=== PATIENT | female | born 1990 | race Caucasian/White ===

== ENCOUNTER 2016-08-24 15:03 | Emergency (ER) | payer MEDICAID ==
[~2016-08-24] VITALS: Ht 165.1 cm; Wt 85.0 kg
[2016-08-24 15:04] VITALS: BP 120/70; PULSE 86; RESP 18; TEMP 98.4; O2SAT 97
[2016-08-24 15:59] LABS: BLOOD, URINE NEG (NEG); COMMENT (UR) CULT NOT INDICATED; CULTURE IF INDICATED CULT NOT INDICATED; GLUCOSE,URINE NEG (NEG); KETONE, URINE NEG (NEG); MUCUS URINE FEW /lpf (OCC); NITRITE,URINE NEG (NEG); PH, URINE 6.5 (5.0-8.5); SQUAMOUS EPITHELIAL CELL URINE <1 /hpf (0-5); URINE COLOR YELLOW (YELLW/STRAW)
[2016-08-24 16:00] LABS: AUTOMATED NEUTROPHIL # 8.8 TH/MM3 (1.8-7.7); BASOPHIL # 0.1 TH/MM3 (0-0.2); BASOPHIL % 0.6 % (0.0-2.0); EOSINOPHIL # 0.1 TH/MM3 (0-0.4); EOSINOPHIL % 1.1 % (0.0-4.0); HEMATOCRIT 39.8 % (35.0-46.0); HEMO FLAGS DIFF FINAL; LYMPH % 18.6 % (9.0-44.0); LYMPHOCYTE # 2.2 TH/MM3 (1.0-4.8); MEAN CELL VOLUME 88.5 FL (80.0-100.0); MEAN CORPUSCULAR HGB CONC 33.9 % (32.0-36.0); MONO % 6.5 % (0.0-8.0); NEUT % 73.2 % (16.0-70.0); PLATELET COUNT 396 TH/MM3 (150-450); RED CELL DISTRIBUTION WIDTH 13.6 % (11.6-17.2)
[2016-08-24 16:19] LABS: BETA HCG QUANT LESS THAN 1 MIU/ML (0-5)
[2016-08-24] MEDS ORDERED: ORTH1TAB PO (16:26)
--- NOTE | 2016-08-24 16:26 | PD ---
HPI Chief Complaint: English Language Learner Tutor Problem/Complaint Time Seen by Provider: 15:33 Travel History International Travel<30 days: No Contact w/Intl Traveler<30days: No Traveled to known affect area: No History of Present Illness HPI 26-year-old female presents to the ER today because she states that she has been having vaginal spotting and brown vaginal bleeding for 10 days. She states that she has taken her to see test and they were all negative. She denies any significant abdominal pains, fevers, vomiting, urinary symptoms, or any other symptoms. She states that she is concerned because of the ongoing bleeding. She denies any unusual vaginal discharge. Modifying Factors: None Associated Signs & Symptoms: Vaginal bleeding for 10 days Risk Factors: None PFSH Past Medical History Heart Rhythm Problems: Yes (hx rapid heart beat ) Cardiovascular Problems: Yes (SVT) Diminished Hearing: No Tetanus Vaccination: Unknown Influenza Vaccination: No ?: Unknown LMP: 07/16/16 Menopausal: No : 1 Para: 1 Miscarriage: 0 : 0 Past Surgical History Cardiac Surgery: Yes (SVT ablation) Social History Alcohol Use: Yes (rarely) Tobacco Use: Yes (1/2 PPD) Substance Use: No Allergies-Medications (Allergen,Severity, Reaction): Coded Allergies: No Known Allergies (Verified , 04/08/16) Reported Meds & Prescriptions Reported Meds & Active Scripts Active No Active Prescriptions or Reported Medications Review of Systems Except as stated in HPI: all other systems reviewed are Neg Physical Exam Narrative GENERAL: Well-nourished, well-developed young white female patient in no acute distress. SKIN: Warm and dry. HEAD: Normocephalic. EYES: No scleral icterus. No injection or drainage. NECK: Supple, trachea midline. CARDIOVASCULAR: Regular rate and rhythm without murmurs, gallops, or rubs. RESPIRATORY: Breath sounds equal bilaterally. No accessory muscle use. GASTROINTESTINAL: Abdomen soft, non-tender, nondistended. Benign. GENITOURINARY: Normal external genitalia without lesions or erythema. Vaginal vault small amount of dark blood with no drainage. Cervical os was closed without drainage. No cervical motion tenderness. Uterus nontender and nonenlarged. Bilateral adnexa nontender without masses. MUSCULOSKELETAL: No cyanosis, or edema. BACK: Nontender without obvious deformity. No CVA tenderness. Data Data Last Documented VS Vital Signs Date Time Temp Pulse Resp B/P Pulse Ox O2 Delivery O2 Flow Rate FiO2 08/24/16 15:50 68 16 08/24/16 15:04 98.4 120/70 97 Room Air Orders Beta Hcg (Quant/Titer) (08/24/16 15:20) Complete Blood Count With Diff (08/24/16 15:20) Urinalysis - C+S If Indicated (08/24/16 15:33) Labs Laboratory Tests Test 08/24/16 08/24/16 15:42 15:44 White Blood Count 12.0 TH/MM3 Red Blood Count 4.50 MIL/MM3 Hemoglobin 13.5 GM/DL Hematocrit 39.8 % Mean Corpuscular Volume 88.5 FL Mean Corpuscular Hemoglobin 30.0 PG Mean Corpuscular Hemoglobin 33.9 % Concent Red Cell Distribution Width 13.6 % Platelet Count 396 TH/MM3 Mean Platelet Volume 8.6 FL Neutrophils (%) (Auto) 73.2 % Lymphocytes (%) (Auto) 18.6 % Monocytes (%) (Auto) 6.5 % Eosinophils (%) (Auto) 1.1 % Basophils (%) (Auto) 0.6 % Neutrophils # (Auto) 8.8 TH/MM3 Lymphocytes # (Auto) 2.2 TH/MM3 Monocytes # (Auto) 0.8 TH/MM3 Eosinophils # (Auto) 0.1 TH/MM3 Basophils # (Auto) 0.1 TH/MM3 CBC Comment DIFF FINAL Differential Comment Human Chorionic Gonadotropin, LESS THAN 1 Quant MIU/ML Urine Color YELLOW Urine Turbidity CLEAR Urine pH 6.5 Urine Specific [place] 1.029 Urine Protein NEG mg/dL Urine Glucose (UA) NEG mg/dL Urine Ketones NEG mg/dL Urine Occult Blood NEG Urine Nitrite NEG Urine Bilirubin NEG Urine Urobilinogen LESS THAN 2.0 MG/DL Urine Leukocyte Esterase NEG Urine RBC 1 /hpf Urine WBC 1 /hpf Urine Squamous Epithelial <1 /hpf Cells Urine Mucus FEW /lpf Microscopic Urinalysis Comment CULT NOT INDICATED MDM Medical Decision Making Medical Screen Exam Complete: Yes Emergency Medical Condition: Yes Medical Record Reviewed: Yes Interpretation(s) Laboratory Tests Test 08/24/16 08/24/16 15:42 15:44 White Blood Count 12.0 TH/MM3 (4.0-11.0) Neutrophils (%) (Auto) 73.2 % (16.0-70.0) Neutrophils # (Auto) 8.8 TH/MM3 (1.8-7.7) Urine Mucus FEW /lpf (OCC) Differential Diagnosis Vaginal bleedingthreatened AB versus ectopic versus dysmenorrhea/ dysfunctional uterine bleeding Narrative Course Lab work shows that she is not . H&H is stable. Vital signs are stable in the ER and abdomen is benign. At this point, my plan would be to release her with follow-up to [facility] as necessary. I will give her OCP. Return for any worsening in symptoms as needed. The plan has been discussed with her and she states understanding. Diagnosis Primary Impression: Dysfunctional uterine bleeding Med/Other Pt SpecificInfo: Prescription(s) given Scripts Norethindrone-Ethinyl Estradiol (Ortho-Novum )1-35 Mg-Mcg Tab1 Tab PO DAILY #1 PACK Ref 0 Prov:Mike Olson MD 08/24/16 Disposition: 01 DISCHARGE HOME Condition: Stable Mike Olson MD Aug 24, 2016 16:26
[2016-08-24 21:33] LABS: CHLAMYDIA PCR NOT DETECTED (NOT DETECT); NEISSERIA PCR NOT DETECTED (NOT DETECT)
== END 2016-08-24 16:43 | disposition home or self-care (01) ==
LOC: NEPA 15:03
DX: N93.8 Other specified abnormal uterine and vaginal bleeding (principal)
CPT/HCPCS: 81001; 84702; 85025; 87210; 87491; 87591; 99283

== ENCOUNTER 2017-05-20 14:53 | Emergency (ER) | payer MEDICAID ==
[~2017-05-20] VITALS: Ht 165.1 cm; Wt 77.0 kg
[~2017-05-20 14:53] MED LIST: ORTH1TAB PO
[2017-05-20 14:54] VITALS: BP 133/68; PULSE 82; RESP 16; TEMP 98.3; O2SAT 100
--- NOTE | 2017-05-20 16:24 | PD ---
HPI Chief Complaint: Musculoskeletal Complaint Time Seen by Provider: 16:18 Travel History International Travel<30 days: No Contact w/Intl Traveler<30days: No Traveled to known affect area: No History of Present Illness HPI 26-year-old female here for evaluation of left foot pain. She reports that prior to arrival she tripped on her dog's leash and fell, twisting her left foot and ankle in the process. She is having dorsal lateral left foot pain which is aching and worse when walking. She denies any other injuries and she has no other complaints. PFSH Past Medical History Heart Rhythm Problems: Yes (hx rapid heart beat ) Cardiovascular Problems: Yes (SVT) Diminished Hearing: No ?: Not LMP: 05/20/17 Menopausal: No : 1 Para: 1 Miscarriage: 0 : 0 Past Surgical History Cardiac Surgery: Yes (SVT ablation) Social History Alcohol Use: Yes (rarely) Tobacco Use: Yes (1/2 PPD) Substance Use: No Allergies-Medications (Allergen,Severity, Reaction): Coded Allergies: No Known Allergies (Verified Adverse Reaction, Unknown, 05/20/17) Reported Meds & Prescriptions Reported Meds & Active Scripts Active Review of Systems Musculoskeletal: Positive: Pain, No: Limited ROM Skin: Positive Other (denies open wounds) Physical Exam Narrative GENERAL: Well-nourished female in no acute distress SKIN: Warm and dry. No bruising or soft tissue swelling CARDIOVASCULAR: Regular rate and rhythm. No murmur appreciated. RESPIRATORY: No accessory muscle use. Clear to auscultation. Breath sounds equal bilaterally. MUSCULOSKELETAL: No obvious deformities. Tender to palpation of the dorsal lateral left foot. The patient maintains full flexion and extension of the toes of left foot. Dorsi and plantar flexion is intact. The Achilles tendon is intact and nontender. 2+ dorsalis pedis pulse. NEUROLOGICAL: Awake and alert. No obvious cranial nerve deficits. Motor grossly within normal limits. Normal speech. Data Data Last Documented VS Vital Signs Date Time Temp Pulse Resp B/P (MAP) Pulse Ox O2 Delivery O2 Flow Rate FiO2 05/20/17 14:54 98.3 82 16 133/68 (89) 100 Room Air Orders Orders Foot, Complete ([id number]) (05/20/17 ) Ankle, Limited (Ap&Lat) (05/20/17 ) MDM Medical Decision Making Medical Screen Exam Complete: Yes Emergency Medical Condition: Yes Medical Record Reviewed: Yes Differential Diagnosis Left foot strain, contusion, fracture Narrative Course The patient declines any analgesics. X-ray imaging was ordered in triage and is negative. The patient appears to have a strain to her left foot. She is being discharged with crutches. Diagnosis Primary Impression: Strain of left foot Qualified Codes: S96.912A - Strain of unspecified muscle and tendon at ankle and foot level, left foot, initial encounter Additional Instructions: Tylenol or Motrin for pain. Crutches as needed. Return for any emergent medical conditions. Med/Other Pt SpecificInfo: No Change to Meds Disposition: 01 DISCHARGE HOME Condition: Stable Mello Barnes May 20, 2017 16:24
--- NOTE | 2017-05-20 16:56 | RADRPT ---
EXAM DATE/TIME: 05/20/2017 16:07 [facility] COMPARISON: No previous studies available for comparison. INDICATIONS : Left ankle pain after falling today. MEDICAL HISTORY : None. SURGICAL HISTORY : None. ENCOUNTER: Initial ACUITY: 1 day PAIN SCORE: 8/10 LOCATION: Left ankle. FINDINGS: Two view exam was performed of the left ankle. The bony structures are in normal alignment. No evid ence of fracture, dislocation, or soft tissue swelling. No radiopaque foreign bodies are seen. Bony mineralization is normal. CONCLUSION: 1. No acute fracture or dislocation. Vicente Louis MD on May 20, 2017 at 16:54 Board Certified Radiologist. This report was verified electronically.
--- NOTE | 2017-05-20 16:57 | RADRPT ---
EXAM DATE/TIME: 05/20/2017 16:10 [facility] COMPARISON: No previous studies available for comparison. INDICATIONS : Left foot pain after falling today. MEDICAL HISTORY : None. SURGICAL HISTORY : None. ENCOUNTER: Initial ACUITY: 1 day PAIN SCORE: 8/10 LOCATION: Left foot. FINDINGS: Three view examination of the left foot demonstrates no soft tissue swelling, dislocation, or fractur e. The tarsal bones appear intact. The interphalangeal and metatarsophalangeal joints are intact. The calcaneus is intact. Bony mineralization is normal. CONCLUSION: 1. No acute fracture or dislocation. Vicente Louis MD on May 20, 2017 at 16:55 Board Certified Radiologist. This report was verified electronically.
== END 2017-05-20 17:33 | disposition home or self-care (01) ==
LOC: NEPK 14:53
DX: S96.912A Strain of unspecified muscle and tendon at ankle and foot level, left foot, initial encounter (principal); F17.200 Nicotine dependence, unspecified, uncomplicated; Z86.79 Personal history of other diseases of the circulatory system; W18.09XA Striking against other object with subsequent fall, initial encounter
CPT/HCPCS: 73600; 73630; 99284; E0113

== ENCOUNTER 2017-05-31 09:51 | Emergency (ER) | payer MEDICAID ==
[~2017-05-31] VITALS: Ht 165.1 cm; Wt 79.5 kg
[2017-05-31 09:52] VITALS: BP 133/78; PULSE 80; RESP 18; TEMP 98; O2SAT 100
[2017-05-31] MEDS ORDERED: VALA1TAB PO (10:59)
[2017-05-31] MEDS ORDERED: [UNRECOGNIZED DRUG - CODE] DENTAL (10:59)
--- NOTE | 2017-05-31 10:59 | PD ---
HPI Chief Complaint: Medical Clearance Time Seen by Provider: 10:02 Travel History International Travel<30 days: No Contact w/Intl Traveler<30days: No Traveled to known affect area: No History of Present Illness HPI This is a 27-year-old female who presents to the emergency Department with onset at 4 AM of lesions on the right lower lip, constant, painful, burning, associated with some swelling of her lip. She says she does bite her lip and she is worried that may be where it came from. She says she has not had oral sex in a long time. PFSH Past Medical History Heart Rhythm Problems: Yes (hx rapid heart beat ) Cardiovascular Problems: Yes (SVT) Diminished Hearing: No Tetanus Vaccination: > 5 Years Influenza Vaccination: No ?: Not Menopausal: No : 1 Para: 1 Miscarriage: 0 : 0 Past Surgical History Cardiac Surgery: Yes (SVT ablation) Social History Alcohol Use: Yes (rarely) Tobacco Use: Yes (1/2 PPD) Substance Use: No Allergies-Medications (Allergen,Severity, Reaction): Coded Allergies: No Known Allergies (Verified Adverse Reaction, Unknown, 05/31/17) Reported Meds & Prescriptions Reported Meds & Active Scripts Active No Active Prescriptions or Reported Medications Review of Systems General / Constitutional: No: Fever, Chills Gastrointestinal: No: Nausea, Vomiting Physical Exam Narrative GENERAL: Well-appearing, no acute distress, nontoxic SKIN: Scattered vesicular lesions on the right lower lip and on the inner right mandibular mucosa with nothing on the posterior pharynx HEAD: Atraumatic. Normocephalic. ENT: No nasal bleeding or discharge. Moist mucous membranes MUSCULOSKELETAL: No obvious deformities. No clubbing. No cyanosis. No edema. NEUROLOGICAL: Awake and alert. No obvious cranial nerve deficits. Motor grossly within normal limits. Normal speech. PSYCHIATRIC: Appropriate mood and affect; insight and judgment normal. Data Data Last Documented VS Vital Signs Date Time Temp Pulse Resp B/P (MAP) Pulse Ox O2 Delivery O2 Flow Rate FiO2 05/31/17 09:52 98.0 80 18 133/78 (96) 100 Room Air MDM Medical Decision Making Medical Screen Exam Complete: Yes Emergency Medical Condition: Yes Differential Diagnosis HSV 1, HSV 2, shingles, aphthous ulcer Narrative Course This is a 27-year-old female who presents to the emergency department with vesicular lesions on her right lower lip. These appear to be herpetic in nature. I suspect she has an HSV 1 infection. I discussed her that it's possible that this will progress to a shingles outbreak and if it doesn't she should return to the emergency department. She'll be treated with oral antiviral therapy. Diagnosis Primary Impression: Primary HSV infection with gingivostomatitis Patient Instructions: General Instructions Additional Instructions: If you develop lesions that are spreading on your right face, inability to swallow, or inability to eat or drink return to the emergency department. Med/Other Pt SpecificInfo: Prescription(s) given Scripts Benzocaine Dental (Zilactin-B Dental) 10% Gel 1 APPLIC DENTAL BID Y for PAIN SCALE 4 TO 10, #1 TUBE Prov: Kasie Arango MD 05/31/17 Valacyclovir (Valacyclovir) 1,000 Mg Tab 1000 MG PO TID for Mgmt Viral Infection for 10 Days, #90 TAB 0 Refills Prov: Kasie Arango MD 05/31/17 Disposition: 01 DISCHARGE HOME Condition: Stable Kasie Arango MD May 31, 2017 10:59
== END 2017-05-31 11:03 | disposition home or self-care (01) ==
LOC: NEPK 09:51
DX: B00.2 Herpesviral gingivostomatitis and pharyngotonsillitis (principal); I47.1 Supraventricular tachycardia; F17.200 Nicotine dependence, unspecified, uncomplicated
CPT/HCPCS: 99283

== ENCOUNTER 2017-06-01 04:23 | Emergency (ER) | payer MEDICAID ==
[~2017-06-01] VITALS: Ht 165.1 cm; Wt 71.0 kg
[~2017-06-01 04:23] MED LIST changes: -ORTH1TAB PO; +VALA1TAB PO; +[UNRECOGNIZED DRUG - CODE] DENTAL
[2017-06-01 04:24] VITALS: BP 147/82; PULSE 94; RESP 16; TEMP 98.4; O2SAT 100
--- NOTE | 2017-06-01 05:03 | PD ---
HPI Chief Complaint: Skin Problem Time Seen by Provider: 04:36 Travel History International Travel<30 days: No Contact w/Intl Traveler<30days: No Traveled to known affect area: No History of Present Illness HPI 27-year-old white female presents to emergency department with complains of a rash to her right lower lip. She was seen here in the ER yesterday and was diagnosed with HSV. She states that she is unsure whether this is the right diagnosis and would like to have a second opinion. She is concerned that it can be associated with other types of rashes such as shingles. She states that the rash is now going on the inside of her mouth. She denies any fever or chills. She denies any known exposures to herpes. Symptoms are moderate. No alleviating factor. PFSH Past Medical History Heart Rhythm Problems: Yes (hx rapid heart beat ) Cardiovascular Problems: Yes (SVT) Diminished Hearing: No Immunizations Current: Yes Tetanus Vaccination: Unknown Influenza Vaccination: No ?: Not LMP: 05/27/17 Menopausal: No : 1 Para: 1 Miscarriage: 0 : 0 Past Surgical History Cardiac Surgery: Yes (SVT ablation) Social History Alcohol Use: Yes (rarely) Tobacco Use: Yes (1/2 PPD) Substance Use: No Allergies-Medications (Allergen,Severity, Reaction): Coded Allergies: No Known Allergies (Verified Adverse Reaction, Unknown, 06/01/17) Reported Meds & Prescriptions Reported Meds & Active Scripts Active Valacyclovir (Valacyclovir HCl) 1,000 Mg Tab 1,000 Mg PO TID 10 Days Review of Systems General / Constitutional: No: Fever Eyes: No: Visual changes HENT: No: Headaches Cardiovascular: No: Chest Pain or Discomfort Respiratory: No: Shortness of Breath Gastrointestinal: No: Abdominal Pain Genitourinary: No: Dysuria Musculoskeletal: No: Pain Skin: Positive Rash, Positive Lesions Neurologic: No: Weakness Psychiatric: No: Depression Endocrine: No: Polydipsia Hematologic/Lymphatic: No: Easy Bruising Physical Exam Narrative GENERAL: Well-developed, well-nourished in no acute distress. Nontoxic appearing. HEAD: Normocephalic, atraumatic. EYES: Pupils equal round and reactive. Extraocular motions intact. No scleral icterus. No injection or drainage. ENT: TMs clear without erythema. The external auditory canals clear. Nose: clear . Posterior pharynx is pink and moist. No tonsillar edema or exudate. Uvula midline. Airway patent. Patient has vesicles on erythematous base to the right lower lip and on the buccal mucosa NECK: Trachea midline.Supple, nontender, moves head freely. No central bony tenderness or spasm. CARDIOVASCULAR: Regular rate and rhythm without murmurs, gallops, or rubs. RESPIRATORY: Clear to auscultation. Breath sounds equal bilaterally. No wheezes , rales, or rhonchi. GASTROINTESTINAL: Abdomen soft, non-tender, nondistended. No hepato-splenomegaly , or palpable masses. No guarding. EXTREMITIES: No clubbing, cyanosis, or edema. No joint tenderness, effusion, or edema noted. BACK: Nontender without deformity or crepitance. No flank tenderness. Data Data Last Documented VS Vital Signs Date Time Temp Pulse Resp B/P (MAP) Pulse Ox O2 Delivery O2 Flow Rate FiO2 06/01/17 04:24 98.4 94 16 147/82 (103) 100 Room Air Orders Orders Ed Discharge Order (06/01/17 04:59) MDM Medical Decision Making Medical Screen Exam Complete: Yes Emergency Medical Condition: Yes Medical Record Reviewed: Yes Differential Diagnosis DIFFERENTIAL DIAGNOSES: hsv 1, hsv 2, SHINGLES, stomatitis Narrative Course The patient is given information regarding HSV-1 as well as images. I have explained to her that there is no test in the ER that I can perform to give her exact diagnosis. She is to follow-up with a primary care doctor or locomotive operator helper. She is advised to continue the medication. She is counseled that this is the correct treatment. Diagnosis Primary Impression: HSV-1 (herpes simplex virus 1) infection Patient Instructions: General Instructions Additional Instructions: Rest. Complete your medication. Follow-up with a locomotive operator helper for a second opinion. Return to the ER for emergencies. Med/Other Pt SpecificInfo: No Change to Meds Disposition: 01 DISCHARGE HOME Condition: Stable Je Gill Jun 01, 2017 05:03
== END 2017-06-01 05:22 | disposition home or self-care (01) ==
LOC: NEPD 04:23
DX: B00.9 Herpesviral infection, unspecified (principal); F17.200 Nicotine dependence, unspecified, uncomplicated
CPT/HCPCS: 99282

== ENCOUNTER 2017-10-20 10:31 | Emergency (ER) | payer MEDICAID ==
[~2017-10-20 10:31] MED LIST changes: -[UNRECOGNIZED DRUG - CODE] DENTAL
[2017-10-20 10:43] VITALS: BP 117/66; PULSE 61; RESP 16; TEMP 98.1; O2SAT 100
[2017-10-20] MEDS ORDERED: BACT800T5 PO (11:19)
--- NOTE | 2017-10-20 11:21 | PD ---
HPI Chief Complaint: Skin Problem Time Seen by Provider: 11:15 Travel History International Travel<30 days: No Contact w/Intl Traveler<30days: No Traveled to known affect area: No History of Present Illness HPI 27-year-old female presents to the emergency department with complaint of drainage coming from her left nipple piercing since this morning after waking up. Got her nipples pierced 2 weeks ago. Denies fever, vomiting. Denies pain , redness, breast lump. Has been using a antibiotic cleanser and spray that she was given by the district wire chief for symptom management. Symptoms are mild in severity. No known aggravating or relieving factors. No known allergies. Primary CARE providers Dr. Knott. Denies significant past medical history. Has no other medical complaints. No other modifying factors or associated signs and symptoms. PFSH Past Medical History Heart Rhythm Problems: Yes (hx rapid heart beat ) Cardiovascular Problems: Yes (SVT) Diminished Hearing: No Immunizations Current: Yes Tetanus Vaccination: < 5 Years ?: Not LMP: now Menopausal: No : 1 Para: 1 Miscarriage: 0 : 0 Past Surgical History Cardiac Surgery: Yes (SVT ablation) Social History Alcohol Use: Yes (rarely) Tobacco Use: Yes (1/2 PPD) Substance Use: No Allergies-Medications (Allergen,Severity, Reaction): Coded Allergies: No Known Allergies (Verified Adverse Reaction, Unknown, 06/01/17) Reported Meds & Prescriptions Reported Meds & Active Scripts Active Bactrim DS (Sulfamethoxazole-Trimethoprim) 800-160 Mg Tab 1 Tab PO BID 10 Days Valacyclovir (Valacyclovir HCl) 1,000 Mg Tab 1,000 Mg PO TID 10 Days Review of Systems Except as stated in HPI: all other systems reviewed are Neg Physical Exam Narrative GENERAL: Well-nourished, well-developed female patient, in no acute distress; afebrile, nontoxic-appearing SKIN: Warm and dry. Left nipple piercing with purulent drainage noted from the piercing site; without erythema, edema, tenderness on palpation. No palpable lump. HEAD: Atraumatic. Normocephalic. EYES: Pupils equal and round. No scleral icterus. No injection or drainage. ENT: Mucosa pink and moist. Airway patent. NECK: Trachea midline. CARDIOVASCULAR: Regular rate. RESPIRATORY: No accessory muscle use. GASTROINTESTINAL: Obese. MUSCULOSKELETAL: No obvious deformities. No clubbing. No cyanosis. No edema. NEUROLOGICAL: Awake and alert. Oriented 3. No obvious cranial nerve deficits. Motor grossly within normal limits. Normal speech. PSYCHIATRIC: Appropriate mood and affect; insight and judgment normal. Data Data Last Documented VS Vital Signs Date Time Temp Pulse Resp B/P (MAP) Pulse Ox O2 Delivery O2 Flow Rate FiO2 10/20/17 10:43 98.1 61 16 117/66 (83) 100 Orders Orders Ed Discharge Order (10/20/17 11:21) Wound Culture And Gram Stain (10/20/17 11:21) [facility] Medical Decision Making Medical Screen Exam Complete: Yes Emergency Medical Condition: Yes Medical Record Reviewed: Yes Differential Diagnosis Infected pierced nipple, breast abscess, cellulitis Narrative Course 27-year-old female with an infected pierced nipple of the left breast. Wound culture pending. Patient is afebrile and nontoxic-appearing. Denies fever, vomiting. Patient denies pain. There is no cellulitis noted to the area. No palpable lumps. Bactrim prescribed for home. Instructed patient it would be best to remove the nipple piercing. She verbalized understanding, but says she wants to see if she can get the infection to go away and continue with the piercing . instructed patient to follow up with primary care provider. Patient verbalizes understanding and agreement with treatment plan. Patient is medically cleared and stable for discharge. Discussed reasons to return to the emergency department. Patient agrees with treatment plan. The patients vital signs are stable and the patient is stable for outpatient follow-up and treatment. Patient discharged home, stable and in no acute distress. Diagnosis Primary Impression: Infected pierced nipple Referrals: [facility] Primary Care Physician Patient Instructions: General Instructions, Pierced [place] Infection (ED), Wound Infection (ED) Additional Instructions: Antibiotics as prescribed and complete full course Keep area clean and dry Continue nipple piercing care as previously directed by your district wire chief Ibuprofen or Tylenol as needed and as directed for pain Follow-up with primary care provider Return to the emergency department immediately for worsening of symptoms Med/Other Pt SpecificInfo: Prescription(s) given Scripts Sulfamethoxazole-Trimethoprim (Bactrim DS) 800-160 Mg Tab 1 TAB PO BID for Infection for 10 Days, #20 TAB 0 Refills Prov: Jessica Jarquin 10/20/17 Disposition: 01 DISCHARGE HOME Condition: Stable Jessica Jarquin Oct 20, 2017 11:20
== END 2017-10-20 11:40 | disposition home or self-care (01) ==
LOC: NEPK 10:31
DX: S20.152A Superficial foreign body of breast, left breast, initial encounter (principal); I47.1 Supraventricular tachycardia; F17.200 Nicotine dependence, unspecified, uncomplicated; W26.8XXA Contact with other sharp object(s), not elsewhere classified, initial encounter
CPT/HCPCS: 87070; 87205; 99283